=== PATIENT | male | born 1980 | race African-American/Black ===

== ENCOUNTER 2017-06-11 08:16 | Emergency (ER) | payer OTHER ==
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
[2017-06-11 11:20] VITALS: BP 120/82
== END 2017-06-11 11:18 | disposition home or self-care (01) ==
LOC: ER 08:16
DX: S16.1XXA Strain of muscle, fascia and tendon at neck level, initial encounter (principal); S39.012A Strain of muscle, fascia and tendon of lower back, initial encounter; S63.501A Unspecified sprain of right wrist, initial encounter; M54.2 Cervicalgia; M54.9 Dorsalgia, unspecified; M25.512 Pain in left shoulder; M25.531 Pain in right wrist; V87.7XXA Person injured in collision between other specified motor vehicles (traffic), initial encounter; F17.210 Nicotine dependence, cigarettes, uncomplicated
CPT/HCPCS: 99284; 72050; 73110; L3908